=== PATIENT | male | born 1990 | race Caucasian/White ===

== ENCOUNTER 2018-01-07 22:44 | Emergency (ER) | payer MEDICAID ==
[~2018-01-07] VITALS: Ht 177.8 cm; Wt 74.9 kg
[~2018-01-07 22:44] MED LIST: DIPH-423 PO; NO HOME MEDS; ONDA4TAB12 PO
[2018-01-07] MEDS ORDERED: HYDROcodone/acetaminophen 10/325mg tab PO ONE (23:05)
[2018-01-07] MEDS ORDERED: ONDA4TAB9 PO (23:07)
[2018-01-07 23:23] VITALS: BP 150/85
== END 2018-01-07 23:24 | disposition home or self-care (01) ==
LOC: ER 22:44
DX: F11.10 Opioid abuse, uncomplicated (principal); Z88.5 Allergy status to narcotic agent; Z79.899 Other long term (current) drug therapy
CPT/HCPCS: 99283

== ENCOUNTER 2018-09-22 10:33 | Emergency (ER) | payer MEDICAID ==
[~2018-09-22] VITALS: Ht 177.8 cm; Wt 55.0 kg
[2018-09-22] MEDS ORDERED: dexamethasone sod phosphate 10mg/ml inj IV STA (11:01)
[2018-09-22] MEDS ORDERED: ampicillin/sulbac 3gm/NS 100ml 100 ML IV STA (11:01)
[2018-09-22] MEDS ORDERED: normal saline 1000ML IV soln IVB ONE (11:05)
[2018-09-22] MEDS ORDERED: LIDOcaine Viscous 15ml cup MM PRN (11:10)
[2018-09-22] MEDS ORDERED: LIDOcaine 1.5% w/epinephrine 1:200,000 5ml ampul IJ ONE (11:10)
[2018-09-22] MEDS ORDERED: LIDOcaine 1% w/epiNEPHrine 1:200,000 30ml vial IJ ONE (11:15)
[2018-09-22 11:35] LABS: BASOPHILS % (AUTO) 0.3 % (0-1); EOSINOPHILS # (AUTO) 0.3 X10'3 (0-0.9); EOSINOPHILS % (AUTO) 1.9 % (0-6); HEMATOCRIT 41.7 % (42.0-52.0); HEMOGLOBIN 13.9 g/dl (14.0-17.9); LYMPHOCYTES # (AUTO) 2.3 X10'3 (1.1-4.8); LYMPHOCYTES % (AUTO) 13.1 % (21-51); MEAN CORPUSCULAR HEMOGLOBIN 29.4 PG (27.0-31.0); MEAN CORPUSCULAR HGB CONC 33.2 % (33.0-36.5); MEAN CORPUSCULAR VOLUME 88.7 FL (78-98); MEAN PLATELET VOLUME 6.4 FL (7.4-10.4); MONOCYTES # (AUTO) 1.5 X10'3 (0-0.9); MONOCYTES % (AUTO) 8.4 % (2-12); NEUTROPHILS # (AUTO) 13.4 X10'3 (1.8-7.7); NEUTROPHILS % (AUTO) 76.3 % (42-75); PLATELET COUNT 399 X10'3 (140-440); RED BLOOD COUNT 4.71 X10'6 (4.70-6.10); RED CELL DISTRIBUTION WIDTH 13.7 % (11.5-14.5); WHITE BLOOD COUNT 17.5 X10'3 (4.5-11.0)
[2018-09-22 11:48] LABS: ALANINE AMINOTRANSFERASE 26 U/L (12-78); ALBUMIN 3.5 G/DL (3.4-5.0); ALBUMIN/GLOBULIN RATIO 0.7 (1.1-1.5); ALKALINE PHOSPHATASE 94 IU/L (46-116); ANION GAP 6 (8-16); ASPARTATE AMINO TRANSFERASE 20 U/L (10-37); BILIRUBIN,TOTAL 0.5 MG/DL (0.1-1.0); BLOOD UREA NITROGEN 11 MG/DL (7-18); BUN/CREATININE RATIO 13.4 (5.4-32.0); CALCIUM 9.7 MG/DL (8.5-10.1); CHLORIDE 102 MMOL/L (99-107); CREATININE 0.82 MG/DL (0.60-1.10); GLUCOSE 111 MG/DL (70-104); POTASSIUM 4.1 MMOL/L (3.5-5.1); SODIUM 139 MMOL/L (135-145); TOTAL CARBON DIOXIDE 31.5 MMOL/L (24-32); TOTAL PROTEIN 8.6 G/DL (6.4-8.2); eGFR > 90 ML/MIN
[2018-09-22] MEDS ORDERED: iohexol 300mg/ml 100ml inj. ONE (11:52)
[2018-09-22 13:40] VITALS: BP 116/63
[2018-09-22] MEDS ORDERED: AMOX-580 PO (14:14)
[2018-09-22] MEDS ORDERED: CHLO473M3 PO (14:14)
[2018-09-22] MEDS ORDERED: TRAM50TA2 PO (14:14)
== END 2018-09-22 14:37 | disposition home or self-care (01) ==
LOC: ER 10:34
DX: J36 Peritonsillar abscess (principal); F11.90 Opioid use, unspecified, uncomplicated; Z88.5 Allergy status to narcotic agent
CPT/HCPCS: 36415; 42700; 70491; 80053; 85025; 87070; 96365; 96375; 99284; J1100; J3490; J7030; Q9967; J0295

== ENCOUNTER 2019-07-14 08:06 | Emergency (ER) | payer MEDICAID, OTHER ==
[~2019-07-14] VITALS: Ht 177.8 cm; Wt 68.2 kg
[~2019-07-14 08:06] MED LIST changes: +CHLO473M3 PO
[2019-07-14 08:23] VITALS: BP 103/75
--- NOTE | 2019-07-14 08:24 | NUR ---
PT OFFERED ADVOCATE AND HE DECLINED, PT AND OFFICERS MOVED TO ROOM 17 AWAITING SART NURSE.
[2019-07-14] MEDS ORDERED: emtricitabine/tenofovir 200mg/300mg tablet PO SCH (11:00)
[2019-07-14] MEDS ORDERED: CefTRIAXone 250MG IM Kit w/LIDOcaine IM ONE (11:00)
[2019-07-14] MEDS ORDERED: azithromycin 250mg tablet PO ONE (11:00)
[2019-07-14] MEDS ORDERED: RALT400T PO (11:11)
[2019-07-14] MEDS ORDERED: EMTR1TAB PO (11:11)
== END 2019-07-14 12:00 | disposition home or self-care (01) ==
LOC: ER 08:06 → EEVIPCON 08:06 → ER 12:00
DX: Z04.41 Encounter for examination and observation following alleged adult rape (principal); F11.90 Opioid use, unspecified, uncomplicated; F17.220 Nicotine dependence, chewing tobacco, uncomplicated; Z88.6 Allergy status to analgesic agent; Z79.899 Other long term (current) drug therapy
CPT/HCPCS: 96372; 99284